=== PATIENT | male | born 1975 | race Caucasian/White ===

== ENCOUNTER 2016-09-19 11:38 | Emergency (ER) | payer OTHER ==
[2016-09-19 11:44] VITALS: BP 123/80; PULSE 66; TEMP 97.5; BMI 29.7
--- NOTE | 2016-09-19 11:51 | PDOC ---
History of Present Illness - History of Present Illness Initial Comments: 09/19/16 12:12 The patient is a 41 year old male with no past medical hx who presents to the ED complaining of testicular pain since this morning. The patient states he felt the pain after he woke up this morning. He notes the pain was more severe when he woke up and rates the pain as a 5/10 while in the ED. He notes he has had similar pain 1 year ago when he had an infection in his testical. He reports he was treated with antibiotics and was fine. The patient denies dysuria, hematuria, frequency The patient denies fever, chills <Yajaira Mejia - Last Filed: 09/19/16 17:54> <Hayden Lay - Last Filed: 09/19/16 18:02> - General Chief Complaint: Pain, Acute Stated Complaint: PAIN Time Seen by Provider: 09/19/16 11:51 Past History <Yajaira Mejia - Last Filed: 09/19/16 17:54> - Past Medical History Other medical history: denies - Psycho/Social/Smoking Cessation Hx Anxiety: No Suicidal Ideation: No Smoking History: Never smoked Have you smoked in the past 12 months: No Hx Alcohol Use: No <Hayden Lay - Last Filed: 09/19/16 18:02> - Past Medical History Allergies/Adverse Reactions: Allergies Allergy/AdvReac Type Severity Reaction Status Date / Time No Known Allergies Allergy Verified 09/19/16 11:44 Home Medications: Ambulatory Orders Levofloxacin [Levaquin] 750 mg PO DAILY #10 tablet 09/19/16 Review of Systems - Review of Systems Able to Perform ROS?: Yes Comments:: 09/19/16 12:13 GENERAL/CONSTITUTIONAL: No fever or chills. No weakness. HEAD, EYES, EARS, NOSE AND THROAT: No change in vision. No ear pain or discharge. No sore throat. CARDIOVASCULAR: No chest pain or shortness of breath. RESPIRATORY: No cough, wheezing, or hemoptysis. GASTROINTESTINAL: No nausea, vomiting, diarrhea or constipation. GENITOURINARY: +Testicular pain. No dysuria, frequency, or change in urination. MUSCULOSKELETAL: No joint or muscle swelling or pain. No neck or back pain. SKIN: No rash NEUROLOGIC: No headache, vertigo, loss of consciousness, or change in strength/ sensation. ENDOCRINE: No increased thirst. No abnormal weight change. HEMATOLOGIC/LYMPHATIC: No anemia, easy bleeding, or history of blood clots. ALLERGIC/IMMUNOLOGIC: No hives or skin allergy. <Yajaira Mejia - Last Filed: 09/19/16 17:54> *Physical Exam - Vital Signs Last Vital Signs Temp Pulse Resp BP Pulse Ox 97.5 F L 66 18 123/80 99 09/19/16 11:41 09/19/16 11:41 09/19/16 11:41 09/19/16 11:41 09/19/16 11:41 - Physical Exam Comments: 09/19/16 12:13 GENERAL: Awake, alert, and fully oriented, in no acute distress HEAD: No signs of trauma EYES: PERRLA, EOMI, sclera anicteric, conjunctiva clear ENT: Auricles normal inspection, hearing grossly normal, nares patent, oropharynx clear without exudates. Moist mucosa NECK: Normal ROM, supple, no lymphadenopathy, JVD, or masses LUNGS: Breath sounds equal, clear to auscultation bilaterally. No wheezes, and no crackles HEART: Regular rate and rhythm, normal S1 and S2, no murmurs, rubs or gallops ABDOMEN: Soft, nontender, normoactive bowel sounds. No guarding, no rebound. No masses EXTREMITIES: Normal range of motion, no edema. No clubbing or cyanosis. No cords, erythema, or tenderness NEUROLOGICAL: Cranial nerves II through XII grossly intact. Normal speech, normal gait SKIN: Warm, Dry, normal turgor, no rashes or lesions noted. <Yajaira Mejia - Last Filed: 09/19/16 17:54> - Vital Signs Last Vital Signs Temp Pulse Resp BP Pulse Ox 97.5 F L 66 18 123/80 99 09/19/16 11:41 09/19/16 11:41 09/19/16 11:41 09/19/16 11:41 09/19/16 11:41 <Hayden Lay - Last Filed: 09/19/16 18:02> ED Treatment Course - RADIOLOGY Radiograph Interpretation: 09/19/16 14:41 Scrotal ultrasound. The right testicle measures 4.9 x 2.1 cm with homogeneous echotexture and normal vascular flow. Right epididymal head, body and tail measure 11, 4 and 4 mm, respectively. Left testicle measures 4.5 x 1.6 cm with a slightly heterogeneous echotexture and normal vascular flow. The left epididymal head, body and tail measure 8, 3 and 4 mm, respectively. Normal color Doppler flow in the right and left testicle and epididymis. A small right and minimal left hydrocele are present. There is no evidence of a varicocele. IMPRESSION: Slightly coarse echotexture of the left testicle which is nonspecific. There is no evidence of increased flow on the color Doppler images to suggest epididymal orchitis. Normal vascular flow in both testicles without evidence of torsion Reported By: Srinivas Martinez MD 09/19/16 1417 09/19/16 17:54 Patient Name: Salvatore Hernandez THIS IS A PRELIMINARY REPORT FROM [facility]NA[facility] EXAM: CT abdomen/pelvis without contrast IMAGES: [id number] DATE OF SERVICE: 16:03:33.0 REASON FOR EXAM: Hematuria, right testicular pain, rule out stone COMPARISON: None FINDINGS: There is no hydronephrosis. There is no ureteral dilatation. There are no renal or ureteral calculi seen. There are no obvious gallstones. There is a moderate amount of stool noted in the colon. There is no evidence of intestinal obstruction. The appendix is normal in size. Urinary bladder is partially decompressed. There are no bladder calculi. THIS DOCUMENT HAS BEEN ELECTRONICALLY SIGNED Jose Huerta MD 2016 17:37 ES <Yajaira Mejia - Last Filed: 09/19/16 17:54> Medical Decision Making - Medical Decision Making 09/19/16 17:18 The patient is a 41 year old male with no past medical hx who presents to the ED complaining of testicular pain since this morning. The patient states he has had this pain in the past and was treated with antibiotics for an infection. The plan is to order an US and CT scrotum. CT scan was completed at 1446. Still pending the radiology report. Radiology studies were reviewed with the patient. The patient can be discharged. All questions answered. <Yajaira Mejia - Last Filed: 09/19/16 17:54> *DC/Admit/Observation/Transfer - Attestations Scribe Attestion: 09/19/16 12:12 Documentation prepared by Yajaira Mejia, acting as medical resident for Hayden Lay MD/DO. <Yajaira Mejia - Last Filed: 09/19/16 17:54> - Attestations Physician Attestion: 09/19/16 11:51 I, Dr. Hayden Lay, attest that this document has been prepared under my direction and personally reviewed by me in its entirety. I further attest, that it accurately reflects all work, treatment, procedures and medical decision -making performed by me. <Hayden Lay - Last Filed: 09/19/16 18:02> Diagnosis at time of Disposition: Epididymitis Urinary tract infection Qualifiers: Urinary tract infection type: site unspecified Hematuria presence: without hematuria Qualified Code(s): N39.0 - Urinary tract infection, site not specified - Prescriptions Prescriptions: Levofloxacin [Levaquin] 750 mg PO DAILY #10 tablet - Patient Instructions Additional Instructions: Salvatore - I think this was the longest ED visit ever. I apologize that it took so long. No Kidney Stones, No Torsion...... it's just an infection and a few days of antibiotics should make you better. We did send a culture and if it comes back positive, someone will call you. Be Well- Dr. Hayden Lay
[2016-09-19 12:47] LABS: URINE APPEARANCE CLEAR; URINE BILIRUBIN NEGATIVE (NEGATIVE); URINE COLOR YELLOW; URINE GLUCOSE (UA) NEGATIVE (NEGATIVE); URINE KETONE NEGATIVE (NEGATIVE); URINE LEUK ESTERASE NEGATIVE (NEGATIVE); URINE NITRITE NEGATIVE (NEGATIVE); URINE PROTEIN NEGATIVE (NEGATIVE); URINE UROBILINOGEN NEGATIVE E.U./dl (0.2-1.0)
[2016-09-19 12:49] LABS: URINE BLOOD 3+ (NEGATIVE)
[2016-09-19 12:51] LABS: URINE MUCUS MANY; URINE RBC 228 /hpf (0-3); URINE WBC 2 /hpf (3-5)
[2016-09-19] MEDS ORDERED: LEVOFLOXACIN 250 MG TABLET (FP) ONE (17:45)
[2016-09-19] MEDS ORDERED: LEVOFLOXACIN 500 MG TABLET (FP) ONE (17:45)
[2016-09-19] MEDS ORDERED: LEVOFLOXACIN 750 MG TABLET PO ONE (17:56)
== END 2016-09-19 18:11 | disposition home or self-care (01) ==
LOC: JER 11:38
DX: N45.1 Epididymitis (principal); N39.0 Urinary tract infection, site not specified
CPT/HCPCS: 36415; 74176-TC; 76870-TC; 81003; 81015; 87086; 87491; 87591; 99282-25